=== PATIENT | female | born 1970 | race American Indian/Alaskan Native ===

== ENCOUNTER 2018-04-12 22:48 | Emergency (ER) | payer OTHER ==
[2018-04-12 23:02] VITALS: O2SAT 100
--- NOTE | 2018-04-12 23:41 | C.PDOC ---
History Of Present Illness 47 year old female presents to the ED c/o epigastric pain associated with nausea that started today at 14:00. Patient reports she has had similar pain in the past but not this bad. Patient is moaning in pain while in the ED. Patient denies fever, chills, vomit, diarrhea, recent travel, sick contacts, weakness, numbness. Time Seen by Provider: 04/12/18 23:23 Chief Complaint (Nursing): Abdominal Pain History Per: Patient History/Exam Limitations: no limitations Onset/Duration Of Symptoms: Hrs Current Symptoms Are (Timing): Still Present Severity: Mild Location Of Pain/Discomfort: Epigastric Radiation Of Pain To:: None Quality Of Discomfort: "Pain" Associated Symptoms: Nausea. denies: Vomiting, Diarrhea, Loss Of Appetite Exacerbating Factors: None Alleviating Factors: None Last Bowel Movement: Today Recent travel outside of the [place]: No Additional History Per: Patient Abnormal Vaginal Bleeding: No Past Medical History Reviewed: Historical Data, Nursing Documentation, Vital Signs Vital Signs: Last Vital Signs Temp 98.4 F 04/12/18 22:55 Pulse 77 04/12/18 22:55 Resp 16 04/12/18 22:55 BP 150/90 04/12/18 22:55 Pulse Ox 100 04/12/18 23:43 - Medical History PMH: No Chronic Diseases Surgical History: No Surg Hx Family History: States: Unknown Family Hx - Social History Hx Alcohol Use: No Hx Substance Use: No - Immunization History Hx Tetanus Toxoid Vaccination: No Hx Influenza Vaccination: Yes Hx Pneumococcal Vaccination: No Review Of Systems Constitutional: Negative for: Fever, Chills Cardiovascular: Negative for: Chest Pain, Palpitations Respiratory: Negative for: Cough, Shortness of Breath Gastrointestinal: Positive for: Nausea, Abdominal Pain. Negative for: Vomiting , Diarrhea Genitourinary: Negative for: Dysuria, Hematuria Skin: Negative for: Rash Neurological: Negative for: Weakness, Numbness Physical Exam - Physical Exam Appears: Non-toxic, In Acute Distress, Other (uncomfortable ) Skin: Normal Color, Warm, Dry Head: Atraumatic, Normacephalic Eye(s): bilateral: Normal Inspection Oral Mucosa: Moist Neck: Normal ROM, Supple Chest: Symmetrical Cardiovascular: Rhythm Regular Respiratory: Normal Breath Sounds, No Rales, No Rhonchi, No Wheezing Gastrointestinal/Abdominal: Bowel Sounds (active), Soft, Tenderness (epigastric) , No Guarding, No Rebound Extremity: Normal ROM, No Tenderness, No Swelling Neurological/Psych: Oriented x3, Normal Speech Gait: Steady ED Course And Treatment - Laboratory Results Result Diagrams: 04/12/18 23:46 04/12/18 23:46 Lab Interpretation: Normal O2 Sat by Pulse Oximetry: 100 (ON RA) Pulse Ox Interpretation: Normal Reevaluation Time: 00:49 Reassessment Condition: Improved (Sleeping quietly after Toradol) Medical Decision Making Medical Decision Making: Impression: abdominal pain Plan: * Labs * Toradol 30 mg IVP * UA * Abdomen US Disposition - Disposition Disposition Time: 00:50 Condition: IMPROVED Forms: [facility] ([place]) - Clinical Impression Clinical Impression: Epigastric abdominal pain - Scribe Statement The provider has reviewed the documentation as recorded by the Scribe Alex Livingston All medical record entries made by the Scribe were at my direction and personally dictated by me. I have reviewed the chart and agree that the record accurately reflects my personal performance of the history, physical exam, medical decision making, and the department course for this patient. I have also personally directed, reviewed, and agree with the discharge instructions and disposition. Physician Patient Turnover Patient Signed Over To: Terry Montalvo Handoff Comments: pending ultrasound
[2018-04-12 23:51] LABS: BASO % 0.3 % (0.0-2.0); EOS # 0.1 K/uL (0.0-0.7); EOS % 1.4 % (0.0-4.0); HEMOGLOBIN 13.7 g/dL (11.0-16.0); LYMPH # 1.5 K/uL (1.0-4.3); LYMPH % 24.8 % (20.0-40.0); MEAN CELL VOLUME 84.3 fL (81.0-99.0); MEAN CORPUSCULAR HEMOGLOBIN 29.1 pg (27.0-31.0); MEAN CORPUSCULAR HGB CONC 34.5 g/dL (33.0-37.0); MEAN PLATELET VOLUME 7.7 fL (7.2-11.7); MONO # 0.7 K/uL (0.0-0.8); MONO % 10.6 % (0.0-10.0); NEUT # 3.9 K/uL (1.8-7.0); NEUT % 62.9 % (50.0-75.0); RBC 4.71 Mil/uL (3.80-5.20); RED CELL DISTRIBUTION WIDTH 14.2 % (11.5-14.5); WHITE BLOOD COUNT 6.2 K/uL (4.8-10.8)
[2018-04-13 00:05] LABS: ALB/GLOB RATIO 1.3 (1.0-2.1); ALBUMIN 4.4 g/dL (3.5-5.0); ALT/SGPT 39 U/L (9-52); AST/SGOT 32 U/L (14-36); BLOOD UREA NITROGEN 14 mg/dL (7-17); CALCIUM 9.6 mg/dl (8.6-10.4); GFR AFRICAN-AMERICAN > 60; GFR NON-AFRICAN AMERICAN > 60; LIPASE 68 U/L (23-300)
[2018-04-13 01:51] LABS: SQUAMOUS EPITHIAL 1 /hpf (0-5); URINE BILIRUBIN NEGATIVE (NEGATIVE); URINE BLOOD NEGATIVE (NEGATIVE); URINE CLARITY Clear (Clear); URINE COLOR Straw (YELLOW); URINE GLUCOSE (UA) NORMAL (Normal); URINE LEUKOCYTE ESTERASE 1+ Leu/uL (Negative); URINE PROTEIN NEGATIVE (NEGATIVE); URINE UROBILINOGEN NORMAL mg/dL (0.2-1.0)
[2018-04-13 02:56] VITALS: BP 124/81; PULSE 60; RESP 18; TEMP 98
--- NOTE | 2018-04-13 07:58 | RAD ---
Date of service: 04/13/2018 PROCEDURE: Radiographs of the chest and abdomen (obstructive series) HISTORY: epigastric COMPARISON: No prior. TECHNIQUE: AP radiograph of the chest, with upright and supine radiographs of the abdomen. FINDINGS: CHEST: Lungs: Clear. Cardiovascular: Normal size heart. No pulmonary vascular congestion. Pleura: No pleural fluid. No pneumothorax. Other findings: None. ABDOMEN AND PELVIS: Bowel: Stool retention.. No evidence of mechanical obstruction. Free air: None. Bones: bowel gas projecting of the sacrum especially limits this evaluation. Inferior L4-5 and L5-S1 facet hypertrophic arthrosis suggested thoraco lumbar spondylosis Other findings: None. IMPRESSION: No pulmonary infiltrate. Stool retention.No evidence of mechanical bowel obstruction. Senescent osseous changes
--- NOTE | 2018-04-13 10:05 | US ---
Date of service: 04/13/2018 HISTORY: Abdominal pain COMPARISON: None. TECHNIQUE: Grayscale imaging was performed. FINDINGS: LIVER: Measures 15.1 cm. Normal echogenicity of the liver parenchyma. No mass. No intrahepatic bile duct dilatation. GALLBLADDER: There are no gallstones, wall thickening or pericholecystic fluid. The sonographic Painting's sign is negative. COMMON BILE DUCT: Measures 3.0 mm. No stones. No dilatation. PANCREAS: Normal in size and echotexture. No mass. No ductal dilatation. RIGHT KIDNEY: Measures 8.9cm. Normal echogenicity. No calculus, mass, or hydronephrosis. LEFT KIDNEY: Measures 9.7cm. Normal echogenicity. No calculus, mass, or hydronephrosis. SPLEEN: Normal in size and contour. No mass. AORTA: No aneurysmal dilatation. IVC: Unremarkable. OTHER FINDINGS: None. IMPRESSION: No cholelithiasis or biliary dilatation. A preliminary report was provided by [facility].
== END 2018-04-13 02:57 | disposition home or self-care (01) ==
LOC: C.ER 22:48
DX: R10.13 Epigastric pain (principal)
CPT/HCPCS: 74022; 76700; 80053; 81001; 83690; 85025; 96374; 99284; J1885